=== PATIENT | male | born 1970 | race Caucasian/White ===

== ENCOUNTER → 2022-08-25 07:31 | Outpatient (CLI) | payer OTHER, SELFPAY ==
[2022-08-25 08:30] LABS: COVID19 -Nasal RAPID Negative (Negative)
== END ==
PROVIDERS: Referring Provider Internal Medicine; Visit Provider Internal Medicine
DX: Z20.822 Contact with and (suspected) exposure to COVID-19 (principal)
CPT/HCPCS: 87635; C9803

== ENCOUNTER → 2022-08-25 07:38 | Outpatient (CLI) | payer OTHER, SELFPAY | PROVIDERS: Referring Provider Chiropractor; Visit Provider Chiropractor | DX: I51.9 Heart disease, unspecified (principal) ==

== ENCOUNTER → 2022-08-25 07:40 | Outpatient (CLI) | payer OTHER, SELFPAY ==
--- NOTE | 2022-08-25 | DI.ECHO.S_ITS ---
[facility] +---------+ : : [address] : [place] : : : : [id number] : : : : Phone: [phone]---------+ Echocardiogram Report + + :Name: KATARZYNA VILLASEÑOR Study Date: 08/25/2022 Height: 68 in : :[facility] ReadingLocation: Weight: 450 lb : : Gender: Male BSA: 2.9 m2 : :: 1970 Age: 52 yrs BP: 181/106 mmHg: :Reason For Study: Cardiomyopathy : :Ordering Physician: : :MISSY HERNANDEZ Performed By: Tre Mcclain : :Referring: MISSY HERNANDEZ : + + Interpretation Summary The study quality was technically difficult. A contrast injection of Definity was performed to improve assessment of LV function. The ejection fraction is estimated to be 55-60%. The right ventricle is not well visualized. There is no significant valvular heart disease. Procedure: A two-dimensional transthoracic echocardiogram with color flow and Doppler was performed. The study quality was technically difficult. There is no prior echocardiogram noted for this patient. A contrast injection of Definity was performed to improve assessment of LV function. Left Ventricle: The left ventricle is normal in size. There is moderate concentric left ventricular hypertrophy. Left ventricular systolic function is normal. The ejection fraction is estimated to be 55-60%. There are no focal wall motion abnormalities. Diastolic function could not be accurately assessed due to unobtainable data. Right Ventricle: The right ventricle is grossly normal size. The right ventricle is not well visualized. Atria: The left atrium is not well visualized. The left atrium grossly appears normal in size. Right atrium not well visualized. The right atrium grossly appears normal in size. The interatrial septum grossly appears intact with no obvious evidence for an atrial septal defect. Mitral Valve: The mitral valve is normal in structure and function. There is no mitral regurgitation noted. Aortic Valve: The aortic valve is normal in structure and function. No aortic regurgitation is present. Tricuspid Valve: The tricuspid valve is normal in structure and function. No tricuspid regurgitation. Pulmonary artery pressures cannot be estimated because of the lack of a measurable TR jet velocity. Pulmonic Valve: The pulmonic valve is not well visualized. Great Vessels: The aortic root is normal size. The ascending aorta could not be visualized. The IVC is of normal diameter and collapses greater than 50% with a sniff. This suggests a low right atrial pressure of 3 mm Hg. Pericardium/ Pleura There is no pericardial effusion. There is no pleural effusion. MMode/2D Measurements & Calculations LVIDd: 5.7 cm LVOT diam: 2.5 cm LVIDs: 4.0 cm Ao root diam: 3.9 cm FS: 29.8 % IVSd: 1.5 cm LVPWd: 1.4 cm LV yost. diameter/BSA (cm/m^2): 2.0 LV sys. diameter/BSA (cm/m^2): 1.4 LA A4 area: 20.6 cm2 IVC diam: 2.0 cm LVLs ap4: 7.8 cm TAPSE_phl: 2.9 cm Doppler Measurements & Calculations Ao V2 max: 121.0 cm/sec LVOT Max Damon: 96.6 cm/sec Ao V2 mean: 82.5 cm/sec LV V1 max P.7 mmHg Ao max P.0 mmHg LV V1 VTI: 19.5 cm Ao mean P.0 mmHg MEERA(I,D): 4.7 cm2 Ao V2 VTI: 20.3 cm MEERA(V,D): 3.9 cm2 sev ratio: 0.96 MEERA indexed to BSA (cm^2/m^2): 1.6 MV E max damon: 58.3 cm/sec SV(LVOT): 95.7 ml MV A max damon: 59.1 cm/sec MV E/A: 0.99 Med Peak E' Damon: 6.8 cm/sec E/E' med: 8.6 Lat Peak E' Damon: 10.2 cm/sec E/E' lat: 5.7 E/e' average: 7.2 MV dec time: 0.33 sec AV VR_phl: 0.80 MV P1/2t-pr_phl: 97.0 msec MEERA(VTI)/BSA_phl: 1.6 Reading Physician:02:13 PM
--- NOTE | 2022-08-31 10:55 | PM.PFT.1 ---
Pulmonary Function Test Referral & Results Date Patient Seen: 08/25/22 Requesting provider: Eric Kenny Results: The spirometry demonstrates an FVC of 3.24 L which is 68% of predicted. The FEV1 was measured at 2.24 L which is 61% of predicted. The FEV1/FVC ratio was 69 which is 88% of predicted. Following the administration of bronchodilator there was a 21% improvement in FEV1 and a 94% improvement in FEF 25-75%. Interpretation: This study demonstrates moderate obstructive lung disease based on reduction FEV1. There is evidence of significant benefit after bronchodilator as above
== END ==
PROVIDERS: Referring Provider Chiropractor; Visit Provider Chiropractor
DX: I51.9 Heart disease, unspecified (principal); J98.9 Respiratory disorder, unspecified; J98.8 Other specified respiratory disorders; Z20.822 Contact with and (suspected) exposure to COVID-19
CPT/HCPCS: 87635; 94060; C9803; C8929; Q9957